=== PATIENT | female | born 1955 | race Caucasian/White ===

== ENCOUNTER 2023-07-15 11:32 | Emergency (ER) | payer MEDICARE ==
[~2023-07-15] VITALS: Ht 154.9 cm; Wt 58.2 kg
[2023-07-15 11:36] VITALS: BP 123/79; PULSE 66; RESP 16; TEMP 97.7; O2SAT 98
[2023-07-15] MEDS ORDERED: HYDR-3972 PO (14:08)
[2023-07-15] MEDS ORDERED: ibuprofen tablet 400 MG TABLET PO ONE (14:15)
--- NOTE | 2023-07-15 18:44 | NUR ---
I AGREE WITH THE ASSESSMENT PER David ABREU LVN
== END 2023-07-15 14:39 | disposition home or self-care (01) ==
LOC: ER 11:33
DX: S62.305A Unspecified fracture of fourth metacarpal bone, left hand, initial encounter for closed fracture (principal); S62.307A Unspecified fracture of fifth metacarpal bone, left hand, initial encounter for closed fracture; S82.001A Unspecified fracture of right patella, initial encounter for closed fracture; M81.0 Age-related osteoporosis without current pathological fracture; Z88.0 Allergy status to penicillin; Z79.1 Long term (current) use of non-steroidal anti-inflammatories (NSAID); Z79.899 Other long term (current) drug therapy; W19.XXXA Unspecified fall, initial encounter; Y93.89 Activity, other specified; Y92.89 Other specified places as the place of occurrence of the external cause; Y99.8 Other external cause status
CPT/HCPCS: 29125; 29505; 73130; 73564; 99284; A6449